=== PATIENT | female | born 1950 | race African-American/Black ===

== ENCOUNTER → 2018-09-18 | Outpatient (CLI) | payer MEDICARE ==
--- NOTE | 2018-09-18 14:53 | PCVCIMAG ---
APPROVED REPORT Study performed: 09/18/2018 13:39:42 Exam: Stress Echocardiogram Indication: Dyspnea , CAD , Hypertension Patient Location: Echo lab Stress Nurse: Sita Vera RN Room #: 2 Status: routine Ht: 5 ft 6 in HR: 71 bpm BP: 122/72 mmHg Rhythm: RBBB,Bifascicular block Medical History Medical History: CAD non obstructive,Ca Cardiac Risk Factors: HTN, Hyperlipidemia Pretest Chest Pain Characteristics: No chest pain Exercise History: Indeterminate Procedure The patient underwent an Exercise Stress Test using the Allen Protocol. Blood pressure, heart rate, and EKG were monitored. An Echocardiogram was performed by compounding pharmacy technician in four stages in quad fashion. At peak stress, four selected images were obtained and placed side by side with resting images for comparison. Stress Test Details Stress Test: Exercise stress testing was performed using a Allen protocol. HR Resting HR: 71 bpmMax Heart Rate (APMHR): 153 bpm Max HR Achieved: 142 bpmTarget HR (85% APMHR): 130 bpm % of APMHR: 92 Recovery HR: 81 bpm HR response to stress: Normal HR response to stress BP Resting BP: 122/72 mmHg Max BP: 162/78 mmHg Recovery BP: 128/74 mmHg BP response to stress: Normal blood pressure response to stress. ECG Resting ECG: RBBB,Bifascicular block Stress ECG: RBBB,Bifascicular block ST Change: Non-ischemic Maximum ST Deviation: -1.9 mm Arrhythmia: Occ PAC, PVC Recovery ECG: RBBB,Bifascicular block Recovery ST Deviation: -0.85 mm Recovery Arrhythmia: rare PAC Clinical Reason for Termination: Maximal effort Stress Symptoms: Dyspnea, Leg Fatigue Exercise duration: 5 min 00 sec Highest Stage Achieved: Stage 2: 2.5 mph at 12% grade. Exercise capacity: 7.0 METs Overall Exercise Capacity for Age: Poor Scale: Sedentary Angina Score: None No complications. Stress ECG Conclusion The patient exercised according to the ALLEN protocol for 5:00 mins; achieving a work level of 7.0 METS. The resting heart rate of 71 bpm thien to a maximum heart rate of 142 bpm. This value represent 92% of the maximal, age-predicted heart rate. The resting blood pressure of 122/72 mmHg, thien to a maximum blood pressure of 162/78 mmHg. The exercise test was stopped due to fatigue and dyspnea . Lr Treadmill Score is 14.5 which is Low risk. Pre-Stress Echo The resting Echocardiogram showed normal left ventricular contractility with an estimated Ejection Fraction of about 55-60%. Normal wall motion in all segments on baseline images. Post-Stress Echo The stress Echocardiogram showed normal left ventricular contractility with an estimated Ejection Fraction of about 65-70%. Normal augmentation of wall motion in all segments on post stress images. Clinical No clinical or ECG evidence for ischemia. Conclusion Clinical Response: Non-ischemic Exercise Capacity: Below Average Stress ECG Response: Non-ischemic Stress Echo Images: Non-ischemic No clinical, EKG or echocardiographic evidence for ischemia. <Conclusion> No clinical, EKG or echocardiographic evidence for ischemia.
== END | disposition home or self-care (01) ==
LOC: PCVCIMAG 13:23
PROVIDERS: ATTEND Internal Medicine Cardiovascular Disease
DX: I25.10 Atherosclerotic heart disease of native coronary artery without angina pectoris (principal); I35.1 Nonrheumatic aortic (valve) insufficiency; I10 Essential (primary) hypertension; E78.00 Pure hypercholesterolemia, unspecified
CPT/HCPCS: 93005; 93325; 93351; G0463